=== PATIENT | male | born 1975 | race Caucasian/White ===

== ENCOUNTER 2020-03-25 12:07 | Emergency (ER) | payer OTHER, SELFPAY ==
--- NOTE | 2020-03-25 12:24 | ED_ITS ---
[facility] Disposition Clinical Impression: Fever Qualifiers: Fever type: unspecified Qualified Code(s): R50.9 - Fever, unspecified Disposition: Home, Self-Care Condition on Discharge: Good Instructions: Preventing the Spread of Coronavirus Discharge Instructions Additional Instructions: You have been tested for COVID19. Please isolate yourself until test results are received. Referrals: Kisha Alan [Primary Care Provider] - Time of Disposition: 13:09 Medical Decision Making - Elvis Inquiry Pt receiving controlled substance: No Orders (Tests/Meds): ORDERS Category Date Time Status Covid-19 Nasal PCR ([facility]) Routine Lab 03/25/20 12:55 Received [facility] HPI - General Stated complaint: covid test Time Seen by Provider: 03/25/20 12:24 - History of Present Illness Provider Complaint: Headache, cough, body aches and fever since this am. No loss of taste or smell. No vomiting or diarrhea. Onset (ago): hour(s) (8) Relieving factors: none Exacerbating factors: none Associated symptoms: cough, fever/chills, headaches Treatments prior to arrival: none [facility] History - Hepatitis A Screen Attestation statement:: This patient has been screened for Hepatitis A risk factors. I have reviewed the patient's past medical history: Yes ROS Obtained: Yes All systems reviewed & no additional complaints - Constitutional Constitutional: Reports body ache, Reports chills, Reports fever(s), Reports headache(s) - Respiratory Respiratory: Yes cough Physical Exam - General General appearance: alert, in no apparent distress - Head Head exam: atraumatic, normocephalic, normal inspection - Eye Eye exam: Present: normal appearance, PERRL, EOMI - ENT ENT exam: Present: normal exam, normal oropharynx, mucous membranes moist, TM's normal bilaterally, normal external ear exam - Neck Neck exam: Present: normal inspection, full ROM, trachea midline. Absent: meningismus, lymphadenopathy - Chest Chest inspection: Present: normal inspection, symmetric chest wall rise. Absent: tenderness - Respiratory Respiratory exam: Present: normal lung sounds bilaterally. Absent: respiratory distress - Cardiovascular Cardiovascular exam: Present: regular rate, normal rhythm. Absent: JVD - Abdominal Exam Abdominal exam: Present: soft, normal bowel sounds. Absent: distention, tenderness, guarding - Extremities Exam Extremities exam: Present: normal inspection, full ROM, normal capillary refill. Absent: calf tenderness - Back Exam Back exam: Present: normal inspection. Absent: tenderness - Neurological Exam Neurological exam: Present: alert, oriented X3 - Psychiatric Psychiatric exam: Present: normal affect, normal mood - Skin Skin exam: Present: warm, dry, intact, normal color - Lymphatic Lymphatic Findings: no adenopathy
[2020-03-25 13:03] VITALS: BP 116/89; PULSE 111; RESP 20; TEMP 36.9; O2SAT 98; BMI 27.8
[2020-03-25 13:09] VITALS: BP 116/89; PULSE 111; RESP 17; TEMP 36.9; O2SAT 98
--- NOTE | 2020-03-25 16:05 | PC.NURSE ---
Pt called 03/25/2020 at 1557 and given Covid-19 results. Positive.
== END 2020-03-25 13:29 | disposition home or self-care (01) ==
PROVIDERS: Emergency Provider Physician Assistant; PCP Physician Assistant
DX: U07.1 COVID-19 (principal)
CPT/HCPCS: 99201; U0003